=== PATIENT | female | born 1990 | race Caucasian/White ===

== ENCOUNTER 2023-03-12 06:00 | Inpatient (IN) | payer OTHER ==
[~2023-03-12 06:00] MED LIST: HYDROcodone/Acetaminophen 5/325 mg Tablet PO PRN; Ibuprofen 800 MG TAB PO PRN; Lidocaine 1% (PF) 30 ML VIAL SC PRN; Methylergonovine 0.2 MG/ML VIAL IM PRN; Misoprostol 200 MCG TAB PR PRN; Ondansetron PF 4 MG/2 ML Vial IVP PRN; Oxytocin 30 units/NS 500 ML 500 ML IV SCH; Promethazine HCl 25 MG/ML VIAL IM PRN; fentaNYL 50 mcg/mL 1 mL Vial SLOW IVP PRN; hydrALAZINE 20 MG/ML VIAL SLOW IVP PRN
[2023-03-12] MEDS ORDERED: Bupivacaine 0.25% HCL 30 ML VIAL ONE (08:00)
[2023-03-12 10:59] LABS: Hematocrit 38.3 % (34.9-44.5); Hemoglobin 13.4 g/dL (12.0-15.5); Mean Corpuscular Hemoglobin 32.5 pg (27.0-33.0); Mean Platelet Volume 10.9 fl (7.4-10.4); Platelet Count 247 10x3/uL (150-450); RBC Distribution Width 12.7 % (11.5-14.5); Red Blood Cell (RBC) Count 4.12 10x6/uL (3.90-5.03); White Blood Cell (WBC) Count 10.6 10x3/uL (3.5-10.5)
[2023-03-12 11:10] LABS: Syphilis Antibody Nonreactive (Nonreactive); Syphilis Antibody Index 0.04 S/CO (<1.00 Non-Reactive)
[2023-03-12 11:12] LABS: HBSAg Index 0.17 S/CO (0-0.99); Hep B Surf Ag - L&D Non-Reactive S/CO (NonReactive)
[2023-03-12 11:13] VITALS: BMI 32.9
[2023-03-12] MEDS: Lactated Ringer's 1,000 ML IV SCH ×4 (11:17→12:54)
[2023-03-12] MEDS ORDERED: fentaNYL/Ropivacaine Epidural 100 ML ONE (12:08)
[2023-03-12] MEDS ORDERED: Lactated Ringer's 500 ML IV PRN (13:00)
[2023-03-12] MEDS ORDERED: ePHEDrine Sulfate 50 MG/10 ML VIAL SLOW IVP PRN (13:00)
[2023-03-12] MEDS ORDERED: diphenhydrAMINE 50 MG/ML VIAL IVP PRN (13:00)
[2023-03-12] MEDS ORDERED: Naloxone HCl 0.4 mg/ml Vial IVP PRN ×2 (13:00)
[2023-03-12] MEDS ORDERED: Communication Order-Pharmacy FS SCH (13:00)
[2023-03-12] MEDS ORDERED: Moisturizing Cream (Eucerin) 113 GM JAR TOP PRN (13:00)
[2023-03-12] MEDS ORDERED: Acetaminophen 325 MG TAB PO PRN (13:00)
[2023-03-12] MEDS ORDERED: Promethazine HCl 25 MG/ML VIAL IM PRN (13:00)
[2023-03-12] MEDS ORDERED: Ondansetron PF 4 MG/2 ML Vial IVP PRN (13:00)
[2023-03-12] MEDS ORDERED: fentaNYL 2 mcg/Ropivacaine 0.2% Epidural 100 ML CADD EPIDURAL SCH (13:00)
[2023-03-12] MEDS ORDERED: hydrALAZINE 20 MG/ML VIAL SLOW IVP PRN (16:58)
[2023-03-12] MEDS ORDERED: Misoprostol 200 MCG TAB VAG PRN (16:58)
[2023-03-12] MEDS ORDERED: Benzocaine-Menthol 82.5 ML CAN TOP PRN (16:58)
[2023-03-12] MEDS ORDERED: Milk Of Magnesia 30 ML UDCUP PO PRN (16:58)
[2023-03-12] MEDS ORDERED: Lanolin Ointment 7 GM TUBE TOP PRN (16:58)
[2023-03-12] MEDS ORDERED: Oxytocin 30 units/NS 500 ML 500 ML IV SCH (16:58)
[2023-03-12] MEDS ORDERED: HYDROcodone/Acetaminophen 5/325 mg Tablet PO PRN (16:58)
[2023-03-12] MEDS ORDERED: Bisacodyl 10 MG SUPP PR PRN (16:58)
[2023-03-12] MEDS ORDERED: Boostrix 0.5 ML (Tdap) VIAL (>/=7 yrs of age) IM ONE (16:58)
[2023-03-12] MEDS: Ferrous Sulfate 325 MG TAB PO SCH (18:25)
[2023-03-12] MEDS ORDERED: Methylergonovine 0.2 MG/ML VIAL ONE (19:18)
[2023-03-12] MEDS ORDERED: Misoprostol 200 MCG TAB ONE (19:18)
[2023-03-12] MEDS ORDERED: Tranexamic Acid 1,000 MG/10 ML VIAL ONE (19:18)
[2023-03-12] MEDS ORDERED: Carboprost 250 MCG/ML AMP ONE (19:19)
[2023-03-12] MEDS ORDERED: fentaNYL 50 mcg/mL 1 mL Vial ONE (19:24)
[2023-03-12 20:04] LABS: ALT (SGPT) 28 U/L (8-55); AST (SGOT) 45 U/L (5-34); Albumin 2.8 g/dL (3.5-5.0); Alkaline Phosphatase 155 U/L (40-110); Anion Gap 12 mmol/L (10-20); BUN (Urea Nitrogen) 5 mg/dL (7.0-18.7); Bilirubin, Total 0.9 mg/dL (0.2-1.2); Calc. Creatinine Clearance 212 mL/min (70-130); Calcium 8.3 mg/dL (7.8-10.44); Carbon Dioxide 17 mmol/L (22-29); Chloride 109 mmol/L (98-107); Estimated GFR 125; Globulin 2.4 g/dL (2.4-3.5); Glucose 85 mg/dL (70-105); Potassium 3.9 mmol/L (3.5-5.1); Protein, Total 5.2 g/dL (6.0-8.3); Sodium 134 mmol/L (136-145)
[2023-03-12 20:10] LABS: #Basophils 0.1 10x3/uL (0.0-0.2); #Eosinphils 0.1 10x3/uL (0.0-0.5); #Monocytes 1.4 10x3/uL (0.0-1.1); #Neutrophils 17.8 10x3/uL (1.5-8.4); %Basophils 0.3 % (0.0-2.0); %Eosinophils 0.4 % (0.0-6.0); %Lymphocytes 10.2 % (18.0-47.0); %Monocytes 6.2 % (0.0-10.0); %Neutrophils 82.1 % (40.0-75.0); Hematocrit 35.5 % (34.9-44.5); Hemoglobin 12.5 g/dL (12.0-15.5); Mean Corpuscular HGB CONC 35.2 g/dL (32.0-36.0); Mean Corpuscular Hemoglobin 32.6 pg (27.0-33.0); Mean Corpuscular Volume 92.4 fl (81.6-98.3); Mean Platelet Volume 10.8 fl (7.4-10.4); Platelet Count 265 10x3/uL (150-450); RBC Distribution Width 12.9 % (11.5-14.5); Red Blood Cell (RBC) Count 3.84 10x6/uL (3.90-5.03); White Blood Cell (WBC) Count 21.7 10x3/uL (3.5-10.5)
[2023-03-12 20:24] LABS: D-Dimer Test 7.89 mg/L FEU (0.19-0.50); INR-International Normal Ratio 0.9; PTT 25.9 sec (22.0-33.0); Prothrombin Time 10.1 sec (9.5-12.1)
[2023-03-12] MEDS ORDERED: Ampicillin/Sulbactam 3 GM in Sodium Chloride 0.9% 100 ML IVPB SCH (21:30)
[2023-03-12] MEDS: Ibuprofen 800 MG TAB PO SCH (22:11)
[2023-03-12] MEDS: Docusate 100 MG CAP PO SCH (22:12)
[2023-03-13 04:10] LABS: Hematocrit 28.3 % (34.9-44.5); Mean Corpuscular HGB CONC 35.3 g/dL (32.0-36.0); Mean Corpuscular Hemoglobin 32.9 pg (27.0-33.0); Mean Corpuscular Volume 93.1 fl (81.6-98.3); Platelet Count 214 10x3/uL (150-450); RBC Distribution Width 12.9 % (11.5-14.5); Red Blood Cell (RBC) Count 3.04 10x6/uL (3.90-5.03); White Blood Cell (WBC) Count 15.9 10x3/uL (3.5-10.5)
[2023-03-13] MEDS: Ibuprofen 800 MG TAB PO SCH ×3 (05:47→21:21)
[2023-03-13] MEDS: Ferrous Sulfate 325 MG TAB PO SCH ×2 (09:33→16:54)
[2023-03-13] MEDS: Prenatal Vitamin 1 TAB PO SCH (09:33)
[2023-03-13] MEDS: Docusate 100 MG CAP PO SCH ×2 (09:33→21:21)
[2023-03-13] MEDS: HYDROcodone/Acetaminophen 5/325 mg Tablet PO PRN ×2 (09:36→13:59)
[2023-03-13 20:32] VITALS: TEMP 98.1
[2023-03-14] MEDS ORDERED: Acetaminophen 325 MG TAB PO PRN (00:31)
[2023-03-14] MEDS: Ibuprofen 800 MG TAB PO SCH ×2 (05:56→14:16)
[2023-03-14 07:54] VITALS: BP 113/73
[2023-03-14] MEDS: Ferrous Sulfate 325 MG TAB PO SCH (08:56)
[2023-03-14] MEDS: Docusate 100 MG CAP PO SCH (08:56)
[2023-03-14] MEDS: Prenatal Vitamin 1 TAB PO SCH (08:56)
== END 2023-03-14 16:55 | disposition home or self-care (01) | DRG 806 ==
LOC: CSHLD 09:13 → CSHPP 17:52
PROVIDERS: ADMIT Obstetrics & Gynecology; ATTEND Obstetrics & Gynecology
PROC: 10E0XZZ Delivery of Products of Conception, External Approach (ICD-10-PCS; principal; 2023-03-12)
PROC: 0KQM0ZZ Repair Perineum Muscle, Open Approach (ICD-10-PCS; 2023-03-12)
DX: O36.63X0 Maternal care for excessive fetal growth, third trimester, not applicable or unspecified (principal); O72.1 Other immediate postpartum hemorrhage; Z37.0 Single live birth; Z3A.39 39 weeks gestation of pregnancy; O70.1 Second degree perineal laceration during delivery
CPT/HCPCS: 36415; 36430; 51702; 80053; 85027; 85049; 85300; 85362; 85379; 85384; 85610; 85730; 86780; 86850; 86900; 86901; 87340; J0295; J2210; J2590; J3010; J3490; J7120; S0020